=== PATIENT | female | born 1950 | race Asian ===

== ENCOUNTER → 2016-12-30 | Outpatient (CLI) | payer MEDICARE, OTHER ==
[~2016-12-30] MED LIST: EVIS1TAB PO; MIRA33504 PO; NEXI20GR PO; SIMV20TA2 PO
== END ==
LOC: M RAD 14:57
PROVIDERS: ATTEND Internal Medicine
DX: Z12.31 Encounter for screening mammogram for malignant neoplasm of breast (principal)